=== PATIENT | male | born 1995 | race Caucasian/White ===

== ENCOUNTER 2023-12-28 10:34 | Outpatient (CLI) | payer BC, SELFPAY ==
--- NOTE | 2023-12-28 10:38 | US_ITS ---
FINAL REPORT CLINICAL HISTORY: Abdominal pain FINDINGS: ULTRASOUND URINARY BLADDER Limited sonographic images of the urinary bladder were obtained. No masses identified. Prevoid bladder volume is 665 mL. Postvoid bladder volume is 38 mL. IMPRESSION: Small postvoid residual. Reviewed, Interpreted and Dictated by Romain Murrieta MD Transcribed by Andie Aaron Authenticated and [facility]
--- NOTE | 2023-12-28 10:38 | XR_ITS ---
FINAL REPORT CLINICAL HISTORY: Pain, possible kidney stone FINDINGS: A single view of the abdomen was obtained. There is a nonobstructive bowel gas pattern. There are no abnormally dilated loops of small bowel. There are no abnormal calcifications. IMPRESSION: Nonobstructive bowel gas pattern. Reviewed, Interpreted and Dictated by Romain Murrieta MD Transcribed by Andie Aaron Authenticated and [facility]
--- NOTE | 2023-12-28 11:09 | US_ITS ---
FINAL REPORT CLINICAL HISTORY: Abdominal pain FINDINGS: RENAL ULTRASOUND Ultrasound images of the kidneys were obtained. The right kidney measures 11.8 cm in length. It is normal echogenicity. There is no hydronephrosis. The left kidney measures 11.7 cm in length. It is normal echogenicity. There is no hydronephrosis. IMPRESSION: Normal renal ultrasound. Reviewed, Interpreted and Dictated by Romain Murrieta MD Transcribed by Andie Aaron Authenticated and [facility]
== END 2023-12-28 23:59 | disposition home or self-care (01) ==
LOC: RAD 10:34
PROVIDERS: PCP Nurse Practitioner Family; Visit Provider Urology
DX: N20.0 Calculus of kidney (principal)
CPT/HCPCS: 74018; 76770; 76857